=== PATIENT | male | born 1995 | race African-American/Black ===

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

== ENCOUNTER 2019-03-28 15:07 | Emergency (ER) | payer SELFPAY ==
[~2019-03-28] VITALS: Ht 177.8 cm; Wt 72.7 kg
[2019-03-28] MEDS ORDERED: KETOROLAC TROMETHAMINE 10 MG TABLET PO STA (15:20)
--- NOTE | 2019-03-28 15:25 | PHYS DOC ---
Past Medical History Past Medical History: No Pertinent History Past Surgical History: No Surgical History Smoking Status: Never Smoker Alcohol Use: Occasionally Drug Use: None Adult General Chief Complaint Chief Complaint: SYNCOPE HPI HPI Patient is a 23 year old male who presents with syncopal episode prior to arrival. Family was around this happened and started compressions on the patient. The patient rates his pain 6 out of 10 severity. The patient states he did not eat breakfast today and did have a little bit of water. States she's been having a little bit of a runny nose, and cough. States he now has chest pain as well. Review of Systems Review of Systems Constitutional: Denies fever or chills [] Eyes: Denies change in visual acuity, redness, or eye pain [] HENT: Reports nasal congestion but denies sore throat [] Respiratory: Reports cough but denies shortness of breath. Cardiovascular: No additional information not addressed in HPI [] GI: Denies abdominal pain, nausea, vomiting, bloody stools or diarrhea [] : Denies dysuria or hematuria [] Musculoskeletal: Denies back pain or joint pain [] Integument: Denies rash or skin lesions [] Neurologic: Denies headache, focal weakness or sensory changes [] Endocrine: Denies polyuria or polydipsia [] Psych: Denies SI Complete systems were reviewed and found to be within normal limits, except as documented in this note. Current Medications Current Medications Current Medications Medications (Trade) Dose Ordered Sig/Leland Start Time Stop Time Status Last Admin Dose Admin Ketorolac Tromethamine (Toradol) 10 mg 1X STAT 03/28/19 15:20 03/28/19 15:23 DC 03/28/19 16:42 10 MG Ondansetron HCl (Zofran) 4 mg 1X ONCE 03/28/19 15:30 03/28/19 15:31 DC 03/28/19 16:42 4 MG Sodium Chloride 1,000 ml @ 1,000 mls/hr 1X ONCE 03/28/19 15:30 03/28/19 16:29 DC 03/28/19 16:42 1,000 MLS/HR Allergies Allergies Allergies Coded Allergies Type Severity Reaction Last Updated Verified No Known Drug Allergies 03/26/16 No Physical Exam Physical Exam Constitutional: Well developed, well nourished, no acute distress, non-toxic appearance. [] HENT: Normocephalic, atraumatic, bilateral external ears normal, oropharynx moist, no oral exudates, nose normal. [] Eyes: PERRLA, EOMI, conjunctiva normal, no discharge. [] Neck: Normal range of motion, no tenderness, supple, no stridor. [] Cardiovascular:Heart rate regular rhythm, no murmur [] Lungs & Thorax: Bilateral breath sounds clear to auscultation [] Abdomen: Bowel sounds normal, soft, no tenderness, no masses, no pulsatile masses. [] Skin: Warm, dry, no erythema, no rash. [] Back: No tenderness, no CVA tenderness. [] Extremities: No tenderness, no cyanosis, no clubbing, ROM intact, no edema. [] Neurologic: Alert and oriented X 3, normal motor function, normal sensory function, no focal deficits noted. [] Psychologic: Affect normal, judgement normal, mood normal. [] Current Patient Data Vital Signs Vital Signs Date Time Temp Pulse Resp B/P (MAP) Pulse Ox O2 Delivery O2 Flow Rate FiO2 03/28/19 16:41 63 13 121/63 (82) 100 Room Air 03/28/19 15:07 98.5 98.5 Lab Values Laboratory Tests Test 03/28/19 16:00 White Blood Count 10.8 x10^3/uL (4.0-11.0) Red Blood Count 5.07 x10^6/uL (4.30-5.70) Hemoglobin 13.8 g/dL (13.0-17.5) Hematocrit 41.5 % (39.0-53.0) Mean Corpuscular Volume 82 fL (79-100) Mean Corpuscular Hemoglobin 27 pg (25-35) Mean Corpuscular Hemoglobin Concent 33 g/dL (31-37) Red Cell Distribution Width 13.3 % (11.5-14.5) Platelet Count 149 x10^3/uL (140-400) Neutrophils (%) (Auto) 88 % (31-73) H Lymphocytes (%) (Auto) 6 % (24-48) L Monocytes (%) (Auto) 5 % (0-9) Eosinophils (%) (Auto) 0 % (0-3) Basophils (%) (Auto) 1 % (0-3) Neutrophils # (Auto) 9.5 x10^3/uL (1.8-7.7) H Lymphocytes # (Auto) 0.6 x10^3/uL (1.0-4.8) L Monocytes # (Auto) 0.6 x10^3/uL (0.0-1.1) Eosinophils # (Auto) 0.0 x10^3/uL (0.0-0.7) Basophils # (Auto) 0.1 x10^3/uL (0.0-0.2) Platelet Estimate Pending Sodium Level 140 mmol/L (136-145) Potassium Level 3.7 mmol/L (3.5-5.1) Chloride Level 104 mmol/L (98-107) Carbon Dioxide Level 26 mmol/L (21-32) Anion Gap 10 (6-14) Blood Urea Nitrogen 12 mg/dL (8-26) Creatinine 1.3 mg/dL (0.7-1.3) Estimated GFR (Cockcroft-Gault) 84.3 BUN/Creatinine Ratio 9 (6-20) Glucose Level 91 mg/dL (70-99) Calcium Level 9.7 mg/dL (8.5-10.1) Total Bilirubin 0.4 mg/dL (0.2-1.0) Aspartate Amino Transferase (AST) 27 U/L (15-37) Alanine Aminotransferase (ALT) 31 U/L (16-63) Alkaline Phosphatase 87 U/L (46-116) Troponin I Quantitative 0.019 ng/mL (0.000-0.055) Total Protein 7.8 g/dL (6.4-8.2) Albumin 4.6 g/dL (3.4-5.0) Albumin/Globulin Ratio 1.4 (1.0-1.7) Laboratory Tests 03/28/19 16:00 Laboratory Tests 03/28/19 16:00 EKG EKG EKG was interpreted by Dr. Ball Sinus rate of 59. [] Radiology/Procedures Radiology/Procedures [][facility] [address] [place] [address] IMAGING REPORT Signed PATIENT: NEELAM MANZANARES AACCOUNT: [id number] : 1995 LOCATION: ER AGE: 23 SEX: M EXAM STATUS: PRE ER ORD. PHYSICIAN: KOLE POND APRN REASON: syncope, CPR performed PROCEDURE: CHEST PA & LATERAL PA and lateral chest. HISTORY: Syncope, CPR performed PA and lateral views were taken of the chest. There is no pneumothorax or pleural effusion. There is mild hyperexpansion of the lungs. There are no acute infiltrates. IMPRESSION: 1. Mild hyperexpansion. 2. No pneumothorax. 3. No acute infiltrates. Electronically signed by: Shyam Rosario MD (03/28/2019 3:58 PM) [id number] DICTATED and SIGNED BY: SHYAM ROSARIO MD DATE: 03/28/19 1558 Course & Med Decision Making Course & Med Decision Making Pertinent Labs and Imaging studies reviewed. (See chart for details) Will get labs, chest x-ray, and will give supportive care. Labs and chest x-ray are unremarkable for acute changes will d/c home to follow up with primary care. Dragon Disclaimer Dragon Disclaimer This electronic medical record was generated, in whole or in part, using a voice recognition dictation system. Departure Departure Impression: Primary Impression: Syncope Disposition: HOME, SELF-CARE Condition: STABLE Referrals: NO PCP (PCP) Patient Instructions: Syncope Additional Instructions: Thank you for visiting [facility]. We appreciate you trusting us with your care. If any additional problems come up don't hesitate to return to visit us. Please follow up with your primary care provider so they can plan additional care if needed and know about the problem that you had. If symptoms worsen come back to the Emergency Department. Any concerning symptoms that start such as chest pain, shortness of air, weakness or numbness on one side of the body, running high fevers or any other concerning symptoms return to the ER. Problem Qualifiers Primary Impression: Syncope Syncope type: unspecified Qualified Codes: R55 - Syncope and collapse KOLE POND APRN Mar 28, 2019 15:25
[2019-03-28] MEDS ORDERED: IV NORMAL SALINE 1000ML BAG 1,000 ML IV ONE (15:30)
[2019-03-28] MEDS ORDERED: ONDANSETRON PF 4 MG/2 ML VIAL. IV ONE (15:30)
--- NOTE | 2019-03-28 16:01 | RAD ---
PA and lateral chest. HISTORY: Syncope, CPR performed PA and lateral views were taken of the chest. There is no pneumothorax or pleural effusion. There is mild hyperexpansion of the lungs. There are no acute infiltrates. IMPRESSION: 1. Mild hyperexpansion. 2. No pneumothorax. 3. No acute infiltrates. Electronically signed by: Shyam Rosario MD (03/28/2019 3:58 PM) [id number]
[2019-03-28 16:09] LABS: BASO # 0.1 x10^3/uL (0.0-0.2); BASO % 1 % (0-3); EOS % 0 % (0-3); HEMATOCRIT 41.5 % (39.0-53.0); HEMOGLOBIN 13.8 g/dL (13.0-17.5); LYMPH # 0.6 x10^3/uL (1.0-4.8); LYMPH % 6 % (24-48); MEAN CORPUSCULAR HEMOGLOBIN 27 pg (25-35); MEAN CORPUSCULAR HGB CONC 33 g/dL (31-37); MEAN CORPUSCULAR VOLUME 82 fL (79-100); MONO # 0.6 x10^3/uL (0.0-1.1); MONO % 5 % (0-9); NEUT # 9.5 x10^3/uL (1.8-7.7); NEUT % 88 % (31-73); PLATELET COUNT 149 x10^3/uL (140-400); RED BLOOD COUNT 5.07 x10^6/uL (4.30-5.70); RED CELL DISTRIBUTION WIDTH 13.3 % (11.5-14.5); WHITE BLOOD COUNT 10.8 x10^3/uL (4.0-11.0)
[2019-03-28 16:22] LABS: CALCIUM 9.7 mg/dL (8.5-10.1); CREATININE 1.3 mg/dL (0.7-1.3); GFR 84.3; POTASSIUM 3.7 mmol/L (3.5-5.1)
[2019-03-28 16:28] LABS: ALBUMIN 4.6 g/dL (3.4-5.0); ALBUMIN/GLOBULIN RATIO 1.4 (1.0-1.7); TOTAL BILIRUBIN 0.4 mg/dL (0.2-1.0); TOTAL PROTEIN 7.8 g/dL (6.4-8.2)
--- NOTE | 2019-03-28 16:39 | EKG ---
[facility] [address] [place] [address] Test Date: 2019-03-28 Test Time: 15:32:28 Pat Name: NEELAM MANZANARES Department: Room: Gender: M [employer]: : 1995 Requested By: KOLE POND Order Number: [id number] Reading MD: Measurements Intervals [place] Rate: 59 P: 64 [place]: 184 QRS: 96 QRSD: 102 T: 51 QT: 410 QTc: 406 Interpretive Statements SINUS RHYTHM LEFT ATRIAL ABNORMALITY RIGHTWARD AXIS INCOMPLETE RIGHT BUNDLE BRANCH BLOCK ABNORMAL ECG RI6.01 No previous ECG available for comparison
[2019-03-28 17:37] LABS: % LYMPHS 7 % (24-48); % MONOS 3 % (0-10); % SEGS 90 % (35-66)
[2019-03-28 17:38] LABS: ANISOCYTOSIS SLIGHT; PLT ESTIMATE ADEQUATE (ADEQUATE)
[2019-03-28 17:41] VITALS: BP 125/62
== END 2019-03-28 17:53 | disposition home or self-care (01) ==
LOC: ER 15:07
DX: R55 Syncope and collapse (principal); R09.89 Other specified symptoms and signs involving the circulatory and respiratory systems; R05 Cough
CPT/HCPCS: 36415; 71046; 80053; 84484; 85007; 85025; 93005; 96361; 96374; 99285; J2405; J7030